=== PATIENT | female | born 1960 | race Caucasian/White ===

== ENCOUNTER 2017-01-04 08:15 | Outpatient (CLI) | payer BC ==
[2017-01-04 08:35] LABS: #Basophils 0.1 thou/uL (0.0-0.2); #Eosinphils 0.2 thou/uL (0.0-0.7); #Lymphocytes 4.3 thou/uL (1.20-3.40); #Monocytes 0.7 thou/uL (0.11-0.59); %Basophils 1.3 % (0.0-1.0); %Lymphocytes 41.8 % (21.0-51.0); %Monocytes 6.8 % (0.0-10.0); %Neutrophils 48.1 % (42.0-75.0); Hemoglobin 16.2 g/dL (12.0-16.0); Mean Corpuscular Hemoglobin 32.9 pg (27.0-31.0); Mean Corpuscular Volume 96.9 fl (81.0-99.0); Mean Platelet Volume 8.5 fL (7.4-10.4); Platelet Count 237 thou/uL (130-400); RBC Distribution Width 12.3 % (11.5-14.5); Red Blood Cell (RBC) Count 4.91 mill/uL (4.20-5.40); White Blood Cell (WBC) Count 10.3 thou/uL (4.8-10.8)
[2017-01-04 08:50] LABS: ALT (SGPT) 28 U/L (0-55); AST (SGOT) 19 U/L (5-34); Alkaline Phosphatase 86 U/L (40-150); Anion Gap 13 mmol/L (10-20); BUN (Urea Nitrogen) 10 mg/dL (9.8-20.1); Bilirubin, Total 0.5 mg/dL (0.2-1.2); Calc. Creatinine Clearance 0 mL/min (70-130); Carbon Dioxide 24 mmol/L (22-29); Cardiac Risk 5.6 (Less than 4.5); Chloride 104 mmol/L (98-107); Cholesterol 240 mg/dL (< 200 Desired); Estimated GFR-MDRD Greater than 90; Globulin 2.8 g/dL (2.4-3.5); Glucose 95 mg/dL (70-105); HDL Cholesterol 43 mg/dL (>60 Neg Risk); LDL Cholesterol, Calculated 151 mg/dL; Phosphorus 2.3 mg/dL (2.3-4.7); Potassium 3.7 mmol/L (3.5-5.1); Protein, Total 6.8 g/dL (6.0-8.3); Sodium 137 mmol/L (136-145); Triglycerides 230 mg/dL (Less than 150)
[2017-01-04 09:31] LABS: Thyroid Stimulating Hormone 3.1434 uIU/mL (0.35-4.94)
[2017-01-04 12:33] LABS: Vitamin D, 25 Hydroxy 19.8 ng/mL (> 30.0)
== END 2017-01-04 08:16 | disposition home or self-care (01) ==
LOC: MADLAB 08:15
DX: Z00.00 Encounter for general adult medical examination without abnormal findings (principal); E55.9 Vitamin D deficiency, unspecified; R53.83 Other fatigue
CPT/HCPCS: 36415; 80050; 80061; 82306; 83970; 84100

== ENCOUNTER 2023-09-05 09:22 | Outpatient (CLI) | payer OTHER | END 2023-09-05 09:23 | disposition home or self-care (01) | LOC: MADRAD 09:22 | PROVIDERS: ATTEND Radiology Diagnostic Radiology | DX: J93.9 Pneumothorax, unspecified (principal) | CPT/HCPCS: 71045 ==